=== PATIENT | female | born 1930 | race Caucasian/White ===

== ENCOUNTER → 2018-11-20 | Outpatient (CLI) | payer MEDICARE, OTHER ==
[~2018-11-20] MED LIST: ALTACE5 M1 PO; AMBIEN 5 MG TABL5 MG PO; BETAPACE PO; CLOPIDOGREL PO; COLACE100 MG PO; COUMADIN 2.5MG2.5 M1; COUMADIN 5 MG TA5 M1; COUMADIN PO; CYMBALTA PO; DILTIAZEM 24HR240 MG PO; DOXYCYCLINE 10100 M1; FOLBEE PLUS CZ1 EACH; GLYCOLAX POWDER17 G1 PO; IMDUR 30 MG TAB30 M1 PO; K-DUR10 ME1; LOPRESSOR PO; LYRICA PO; NITROSTAT0.3 MG SL; OMEPRAZOLE PO; OXYCODONE HCL5 M1 PO; PERCOCET 5-3251 EACH PO; VITAMIN D400 UNI1 PO; ZOCOR 20 MG TAB20 M1
== END ==
LOC: M.ULTRA 13:00
DX: M79.89 Other specified soft tissue disorders (principal); Z88.5 Allergy status to narcotic agent; Z88.0 Allergy status to penicillin; Z88.2 Allergy status to sulfonamides; Z88.8 Allergy status to other drugs, medicaments and biological substances; Z91.041 Radiographic dye allergy status